=== PATIENT | male | born 1965 | race Caucasian/White ===

== ENCOUNTER 2022-03-25 18:40 | Inpatient (IN) ==
[2022-03-26] MEDS ORDERED: Naloxone 0.4 MG/ML INJ IVP PRN (00:07)
[2022-03-26] MEDS ORDERED: Artificial Tears SOLN 15 ML BOTTLE BOTH EYES PRN (00:07)
[2022-03-26] MEDS ORDERED: Dexmedetomidine HCl 400 MCG/100 ML MLS IVC SCH (00:15)
[2022-03-26] MEDS: FentaNYL (PF) 1,000 MCG/100 ML IV.SOLN IVC SCH ×5 (00:41→23:17)
[2022-03-26] MEDS: Chlorhexidine Rinse 15 ML MOUTHWASH MM SCH ×3 (00:58→19:35)
[2022-03-26 04:07] LABS: ABG Base Excess -1 mEq/L (-2 to 3); ABG HCO3 23 mEq/L (21-27); ABG Oxygen Saturation 95 % (95-98); ABG PCO2 35 mmHg (35-45); ABG PH 7.42 pH Units (7.32-7.45); ABG PO2 73 mmHg (85-104); ABG TCO2 24 mEq/L (20-26); Blood Gas Modality AF; Blood Gas VT 480 cc
[2022-03-26] MEDS: Artificial Tears SOLN 15 ML BOTTLE BOTH EYES SCH ×5 (04:38→19:33)
[2022-03-26] MEDS: *HR* Heparin 5,000 UNIT/ML VIAL SQ SCH ×3 (06:40→20:29)
[2022-03-26 07:03] LABS: VBG Ionized Calcium 1.08 mmol/L (1.15-1.35)
[2022-03-26 07:32] LABS: Basophils % 0.3 %; Hematocrit 45.6 % (37.5-50.1); Hemoglobin 15.3 g/dL (12.9-16.9); Immature Granulocytes % 0.6 % (0-4); Lymphocytes # 1.9 K/mcL (0.6-4.6); Lymphocytes % 12.1 %; Mean Corpuscular HGB Conc 33.6 g/dL (31.6-35.5); Mean Corpuscular Hemoglobin 30.8 pg (28.0-33.3); Mean Corpuscular Volume 91.9 fL (83.0-100.0); Mean Platelet Volume 9.6 fL (9.4-12.4); Monocytes # 1.3 K/mcL (0.0-1.3); Monocytes % 8.1 %; Neutrophils # 12.6 K/mcL (1.6-8.9); Platelet Count 175 K/mcL (140-400); Red Blood Count 4.96 M/mcL (4.19-5.50); Red Cell Distribution Width 13.2 % (11.5-14.5); Segmented Neutrophils % 78.9 %; White Blood Count 15.9 K/mcL (4.3-11.1)
[2022-03-26] MEDS: Pantoprazole 40 MG VIAL IVP SCH (07:33)
[2022-03-26 07:50] LABS: Alanine Aminotransferase 36 Units/L (7-52); Albumin 4.1 g/dL (3.5-5.7); Albumin/Globulin Ratio 1.4 (1.1-2.2); Alkaline Phosphatase 55 Units/L (34-104); Aspartate Amino Transferase 86 Units/L (13-39); BUN/Creatinine Ratio 13 (6-26); Bilirubin,Total 0.8 mg/dL (0.3-1.0); Blood Urea Nitrogen 15 mg/dL (6-20); Carbon Dioxide 24 mEq/L (23-29); Chloride 104 mEq/L (98-107); Glucose 111 mg/dL (70-105); Osmolality,Calculated 286 (280-300); Phosphorous 3.4 mg/dL (2.7-4.5); Potassium 3.3 mEq/L (3.5-5.1); Sodium 137 mEq/L (136-145); Total Protein 7.1 g/dL (6.4-8.9); eGFR For African Americans > 60 (> 60); eGFR For Non-African Americans > 60 (> 60)
[2022-03-26] MEDS ORDERED: Potassium Phosphate 44 MEQ in 0.9 % Sodium Chloride 250 ML IVPB PRN (10:52)
[2022-03-26] MEDS ORDERED: Calcium Gluconate 1gm/50mL 1 GM/50 ML BAG IVPB PRN (10:52)
[2022-03-26] MEDS ORDERED: Potassium Chloride Elixir 20 MEQ/15 ML UDC GTUBE PRN (11:15)
[2022-03-26] MEDS: Nicotine 21 MG PATCH.TD24 TD SCH (11:49)
[2022-03-26 12:02] LABS: Basophils % 0.1 %; Hematocrit 45.4 % (37.5-50.1); Hemoglobin 15.6 g/dL (12.9-16.9); Immature Granulocytes % 0.6 % (0-4); Lymphocytes # 1.5 K/mcL (0.6-4.6); Lymphocytes % 10.3 %; Mean Corpuscular HGB Conc 34.4 g/dL (31.6-35.5); Mean Corpuscular Hemoglobin 31.6 pg (28.0-33.3); Mean Corpuscular Volume 92.1 fL (83.0-100.0); Mean Platelet Volume 9.5 fL (9.4-12.4); Monocytes # 1.1 K/mcL (0.0-1.3); Monocytes % 7.7 %; Neutrophils # 11.6 K/mcL (1.6-8.9); Platelet Count 160 K/mcL (140-400); Red Blood Count 4.93 M/mcL (4.19-5.50); Red Cell Distribution Width 13.3 % (11.5-14.5); Segmented Neutrophils % 81.3 %; White Blood Count 14.3 K/mcL (4.3-11.1)
[2022-03-26 12:20] LABS: BUN/Creatinine Ratio 16 (6-26); Blood Urea Nitrogen 15 mg/dL (6-20); Calcium 9.1 mg/dL (8.6-10.3); Carbon Dioxide 23 mEq/L (23-29); Chloride 106 mEq/L (98-107); Glucose 105 mg/dL (70-105); Osmolality,Calculated 285 (280-300); Potassium 3.6 mEq/L (3.5-5.1); Sodium 137 mEq/L (136-145); eGFR For African Americans > 60 (> 60); eGFR For Non-African Americans > 60 (> 60)
[2022-03-26] MEDS: 0.9 % Sodium Chloride w KCl 20 MEQ/1,000 ML MLS IVC SCH (15:30)
[2022-03-26 15:35] LABS: Creatine Kinase 2310 Units/L (30-223)
[2022-03-26 16:05] LABS: VBG Ionized Calcium 1.13 mmol/L (1.15-1.35)
[2022-03-26] MEDS: *HR* LORazepam 2 MG/ML VIAL IVP PRN (19:26)
[2022-03-26] MEDS: rOPINIRole 0.25 MG TABLET PO SCH (20:29)
[2022-03-27] MEDS: 0.9 % Sodium Chloride w KCl 20 MEQ/1,000 ML MLS IVC SCH (02:10)
[2022-03-27] MEDS: Artificial Tears SOLN 15 ML BOTTLE BOTH EYES SCH ×4 (03:31→11:27)
[2022-03-27] MEDS: FentaNYL (PF) 1,000 MCG/100 ML IV.SOLN IVC SCH (03:31)
[2022-03-27 04:37] LABS: ABG Base Excess -2 mEq/L (-2 to 3); ABG HCO3 22 mEq/L (21-27); ABG Oxygen Saturation 95 % (95-98); ABG PCO2 35 mmHg (35-45); ABG PO2 73 mmHg (85-104); ABG TCO2 23 mEq/L (20-26); Blood Gas Modality AF; Blood Gas VT 480 cc
[2022-03-27 05:03] LABS: Basophils % 0.1 %; Hematocrit 43.6 % (37.5-50.1); Hemoglobin 14.9 g/dL (12.9-16.9); Immature Granulocytes % 0.6 % (0-4); Lymphocytes # 1.6 K/mcL (0.6-4.6); Lymphocytes % 11.5 %; Mean Corpuscular HGB Conc 34.2 g/dL (31.6-35.5); Mean Corpuscular Hemoglobin 31.4 pg (28.0-33.3); Mean Platelet Volume 9.8 fL (9.4-12.4); Monocytes # 1.2 K/mcL (0.0-1.3); Monocytes % 8.3 %; Neutrophils # 11.1 K/mcL (1.6-8.9); Platelet Count 138 K/mcL (140-400); Red Blood Count 4.74 M/mcL (4.19-5.50); Red Cell Distribution Width 13.5 % (11.5-14.5); Segmented Neutrophils % 79.5 %; White Blood Count 13.9 K/mcL (4.3-11.1)
[2022-03-27 05:13] LABS: VBG Ionized Calcium 1.13 mmol/L (1.15-1.35)
[2022-03-27 05:27] LABS: Creatine Kinase 1077 Units/L (30-223)
[2022-03-27] MEDS: *HR* Heparin 5,000 UNIT/ML VIAL SQ SCH ×2 (06:14→14:49)
[2022-03-27] MEDS: *HR* LORazepam 2 MG/ML VIAL IVP PRN (07:19)
[2022-03-27] MEDS: Pantoprazole 40 MG VIAL IVP SCH (08:55)
[2022-03-27] MEDS: Chlorhexidine Rinse 15 ML MOUTHWASH MM SCH (08:55)
[2022-03-27] MEDS: Nicotine 21 MG PATCH.TD24 TD SCH (08:55)
[2022-03-27 09:46] LABS: BUN/Creatinine Ratio 15 (6-26); Blood Urea Nitrogen 14 mg/dL (6-20); Calcium 8.5 mg/dL (8.6-10.3); Carbon Dioxide 23 mEq/L (23-29); Chloride 108 mEq/L (98-107); Glucose 98 mg/dL (70-105); Osmolality,Calculated 288 (280-300); Potassium 3.9 mEq/L (3.5-5.1); Sodium 139 mEq/L (136-145); eGFR For African Americans > 60 (> 60); eGFR For Non-African Americans > 60 (> 60)
[2022-03-27] MEDS: rOPINIRole 0.25 MG TABLET PO SCH (20:22)
[2022-03-28] MEDS: *HR* Heparin 5,000 UNIT/ML VIAL SQ SCH ×2 (02:23→08:18)
[2022-03-28 06:19] VITALS: TEMP 97.9
[2022-03-28] MEDS: Nicotine 21 MG PATCH.TD24 TD SCH (08:18)
[2022-03-28] MEDS: Pantoprazole 40 MG VIAL IVP SCH (08:18)
[2022-03-28 08:26] LABS: Mean Corpuscular HGB Conc 33.6 g/dL (31.6-35.5); Red Blood Count 4.46 M/mcL (4.19-5.50); Red Cell Distribution Width 13.2 % (11.5-14.5)
[2022-03-28 08:28] LABS: Hematocrit 42.3 % (37.5-50.1); Hemoglobin 14.2 g/dL (12.9-16.9); Immature Platelets 3.5 % (1.1-6.1); Mean Corpuscular Hemoglobin 31.8 pg (28.0-33.3); Mean Corpuscular Volume 94.8 fL (83.0-100.0); Mean Platelet Volume 9.5 fL (9.4-12.4); White Blood Count 8.2 K/mcL (4.3-11.1)
[2022-03-28] MEDS ORDERED: lisinopriL 5 MG TABLET PO SCH (09:00)
[2022-03-28 09:49] LABS: BUN/Creatinine Ratio 16 (6-26); Blood Urea Nitrogen 12 mg/dL (6-20); Calcium 8.2 mg/dL (8.6-10.3); Carbon Dioxide 23 mEq/L (23-29); Chloride 108 mEq/L (98-107); Creatine Kinase 633 Units/L (30-223); Glucose 143 mg/dL (70-105); Osmolality,Calculated 290 (280-300); Potassium 3.6 mEq/L (3.5-5.1); Sodium 139 mEq/L (136-145); eGFR For African Americans > 60 (> 60); eGFR For Non-African Americans > 60 (> 60)
[2022-03-28 11:08] VITALS: BP 144/78; PULSE 69; O2SAT 96
== END 2022-03-28 14:30 | disposition home or self-care (01) | DRG 917 ==
LOC: ICNU → 3NENU 03-27 21:47
PROVIDERS: ADMIT Pediatrics; ATTEND Pediatrics